=== PATIENT | male | born 1945 | race Caucasian/White ===

== ENCOUNTER 2020-07-12 14:55 | Outpatient (CLI) | payer OTHER, SELFPAY ==
--- NOTE | 2020-07-12 15:03 | USCV_ITS ---
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 Normal FÁTIMA and TBI on the left side. CONCLUSIONS Features suggestive of moderate peripheral artery disease on the right side Possibly no significant arterial obstruction on the left side Dr Teresa Rojas MD [facility] (Electronically Signed) Final Date: 13 July 2020 08:39 S
== END 2020-07-12 14:56 | disposition home or self-care (01) ==
LOC: RAD 15:00
PROVIDERS: PCP Family Medicine; Visit Provider Family Medicine
DX: I73.9 Peripheral vascular disease, unspecified (principal)
CPT/HCPCS: 93922